=== PATIENT | female | born 1995 | race Two or more races ===

== ENCOUNTER 2021-10-02 11:06 | Observation (INO) | payer MEDICAID, OTHER ==
[~2021-10-02] VITALS: Ht 160 cm; Wt 63.5 kg
[2021-10-02] MEDS ORDERED: PREN-96 PO (11:57)
== END 2021-10-02 13:30 | disposition home or self-care (01) ==
LOC: LDRP 11:06
PROVIDERS: ADMIT Obstetrics & Gynecology; ATTEND Obstetrics & Gynecology
DX: O48.0 Post-term pregnancy (principal); O36.8930 Maternal care for other specified fetal problems, third trimester, not applicable or unspecified; Z3A.39 39 weeks gestation of pregnancy
CPT/HCPCS: 59025; 76818; 94760; G0378

== ENCOUNTER 2021-10-03 09:40 | Observation (INO) | payer MEDICAID ==
[~2021-10-03] VITALS: Ht 165.1 cm; Wt 68.0 kg
[~2021-10-03 09:40] MED LIST: PREN-96 PO
[2021-10-03] MEDS: LACTATED RINGER'S 1,000 ML IV ONE (16:25)
== END 2021-10-03 15:18 | disposition home or self-care (01) ==
LOC: LDRP 09:40
PROVIDERS: ADMIT Obstetrics & Gynecology; ATTEND Obstetrics & Gynecology
DX: O42.92 Full-term premature rupture of membranes, unspecified as to length of time between rupture and onset of labor (principal); O62.9 Abnormality of forces of labor, unspecified; Z3A.39 39 weeks gestation of pregnancy
CPT/HCPCS: 59025; 76815; 76818; 81002; 96360; 96361; G0378

== ENCOUNTER 2021-10-05 19:14 | Observation (INO) | payer MEDICAID ==
[~2021-10-05] VITALS: Ht 160 cm; Wt 61.2 kg
== END 2021-10-06 01:07 | disposition home or self-care (01) ==
LOC: LDRP 19:14
PROVIDERS: ADMIT Obstetrics & Gynecology; ATTEND Obstetrics & Gynecology
DX: O48.0 Post-term pregnancy (principal); O36.8930 Maternal care for other specified fetal problems, third trimester, not applicable or unspecified; Z3A.40 40 weeks gestation of pregnancy
CPT/HCPCS: 59025; 76818; 81002; G0378

== ENCOUNTER 2021-10-07 10:25 | Observation (INO) | payer MEDICAID | END 2021-10-07 13:10 | disposition home or self-care (01) | LOC: LDRP 10:25 → UNDOADMOB 10:25 → LDRP 10:40 | PROVIDERS: ADMIT Obstetrics & Gynecology; ATTEND Obstetrics & Gynecology | DX: O48.0 Post-term pregnancy (principal); O62.9 Abnormality of forces of labor, unspecified; Z3A.40 40 weeks gestation of pregnancy | CPT/HCPCS: 59025; 76818; 81002; 94760; G0378 ==

== ENCOUNTER 2021-10-09 02:20 | Inpatient (IN) | payer MEDICAID ==
[2021-10-09] MEDS ORDERED: DERMOPLAST 60ML BOTTLE TOP PRN (02:45)
[2021-10-09] MEDS ORDERED: PROMETHAZINE HCL 25 MG/ML 1ML IV PRN (02:45)
[2021-10-09] MEDS ORDERED: PROMETHAZINE HCL 25 MG/ML 1ML IM PRN (02:45)
[2021-10-09] MEDS ORDERED: WITCH HAZEL-GLYCERIN PAD TOP PRN (02:45)
[2021-10-09] MEDS ORDERED: BUTORPHANOL TARTRATE 2 MG/1 ML VIAL IV PRN ×2 (02:45)
[2021-10-09] MEDS ORDERED: LACTATED RINGER'S 1,000 ML IV SCH (02:45)
[2021-10-09] MEDS ORDERED: LIDOCAINE 2%HCL (LOCAL ANESTH.) INJ 10ml MDV IJ PRN (02:45)
[2021-10-09] MEDS ORDERED: LACT. RINGERS/OXYTOCIN 20UNITS 500 ML IV ONE ×2 (02:45→03:15)
[2021-10-09] MEDS ORDERED: PHISODERM TOP SOLN 240ML BTL TOP PRN (02:45)
[2021-10-09] MEDS ORDERED: NS/OXYTOCIN 20UNITS 500 ML IV ONE ×2 (03:00→03:30)
[2021-10-09 03:24] LABS: Basophils # (auto) 0 10 ^3/uL (0-0.2); Basophils % (auto) 0.1 % (0.0-2.0); Eosinophils # (auto) 0.1 10 ^3/uL (0-0.8); Eosinophils % (auto) 0.4 % (0.0-7.0); Hematocrit 37.5 % (36.0-46.0); Hemoglobin 12.5 g/dL (12.2-16.2); Lymphocytes # (auto) 1.8 10 ^3/uL (0.4-5.4); Mean Corpuscular Hemoglobin 31.2 pg (28.0-32.0); Mean Corpuscular Hgb Conc. 33.5 g/dL (32.0-36.0); Mean Corpuscular Volume 93.2 fL (80.0-100.0); Monocytes # (auto) 0.9 10 ^3/uL (0-1.3); Neutrophils # (auto) 12.3 10 ^3/uL (1.6-8.6); Neutrophils % (auto) 81.5 % (37.0-80.0); Red Blood Cells 4.02 10^6/uL (4.0-5.20); Red Cell Distribution Width 13.7 % (11.8-14.3); White Blood Cell 15.1 10^3/uL (4.4-10.8)
[2021-10-09 03:39] LABS: Amphetamine Screen, Urine NEGATIVE (NEGATIVE); Barbiturate Scree,Urine NEGATIVE (NEGATIVE); Benzodiazephine Screen, Urine NEGATIVE (NEGATIVE); Cannabinoid Screen, Urine NEGATIVE (NEGATIVE); Cocaine Screen, Urine NEGATIVE (NEGATIVE); Opiate Scree,Urine NEGATIVE (NEGATIVE); Phencyclidine Screen, Urine NEGATIVE (NEGATIVE)
[2021-10-09 03:40] LABS: Albumin 3.3 g/dL (3.4-5.0); BUN/Creatinine Ratio 12.7; Calcium 8.5 mg/dL (8.5-10.1); INR 0.9 (0.9-1.15); Partial Thromboplastin Time 27.8 sec (24.6-33.4); Potassium 3.6 mmol/L (3.5-5.1)
[2021-10-09 03:43] LABS: Bilirubin, Total 0.5 mg/dL (0.2-1.0)
[2021-10-09 03:50] LABS: Urine Bacteria MOD /hpf (None Seen); Urine Blood Negative /uL (Negative); Urine Mucus FEW (None Seen); Urine Specific Gravity 1.027 (1.001-1.035); Urine WBC 45 /hpf (0 - 5)
[2021-10-09] MEDS ORDERED: ONDANSETRON ODT 4 MG TAB PO PRN (04:45)
[2021-10-09] MEDS ORDERED: ACETAMINOPHEN 325 MG TAB PO PRN (04:45)
[2021-10-09] MEDS ORDERED: IBUPROFEN 600 MG TAB PO PRN (04:45)
[2021-10-09] MEDS ORDERED: TETANUS-DIPTH-ACEL PERTUSSIS 0.5ML SYR Tdap IM ONE (05:15)
[2021-10-09 06:40] VITALS: BP 108/56
[2021-10-09 11:20] VITALS: BP 99/56
[2021-10-09 14:54] VITALS: BP 103/52
[2021-10-09 19:14] VITALS: BP 110/62
[2021-10-09] MEDS ORDERED: DOCUSATE SOD 100 MG CAP PO SCH (22:00)
[2021-10-09 23:00] VITALS: BP 99/55
[2021-10-10 03:00] VITALS: BP 94/56
[2021-10-10 07:35] VITALS: BP 98/64
[2021-10-10 08:06] LABS: RPR Non Reactive (Non Reactive)
== END 2021-10-10 07:45 | disposition home or self-care (01) | DRG 560 ==
LOC: LDRP 02:20 → UNDOADMOB 02:20 → OBSVTOIN 02:40 → INTOOBSV 02:40 → LDRP 04:07 → UNDODISIN 10-10 07:45 → EDSTATUS 10-19 08:02
PROVIDERS: ADMIT Obstetrics & Gynecology; ATTEND Obstetrics & Gynecology
PROC: 10E0XZZ Delivery of Products of Conception, External Approach (ICD-10-PCS; principal; 2021-10-09)
DX: O62.3 Precipitate labor (principal); Z37.0 Single live birth; O69.81X0 Labor and delivery complicated by cord around neck, without compression, not applicable or unspecified; Z3A.39 39 weeks gestation of pregnancy; Z20.822 Contact with and (suspected) exposure to COVID-19
CPT/HCPCS: 36415; 59025; 59409; 80053; 80307; 81001; 81002; 85025; 85610; 85730; 86592; 86850; 86900; 86901; 90471; 90715; 94760; 96360; 96361; 96365; 96366; G0378; J2001; J2590

== ENCOUNTER 2022-10-05 15:55 | Observation (INO) | payer MEDICAID | END 2022-10-05 17:55 | disposition home or self-care (01) | LOC: UNDOADMOB 15:55 → LDRP 15:55 | PROVIDERS: ADMIT Obstetrics & Gynecology; ATTEND Obstetrics & Gynecology | DX: O62.9 Abnormality of forces of labor, unspecified (principal); O48.0 Post-term pregnancy; O36.8330 Maternal care for abnormalities of the fetal heart rate or rhythm, third trimester, not applicable or unspecified; Z3A.40 40 weeks gestation of pregnancy | CPT/HCPCS: 59025; 76818; 81002; 94760; G0378 ==

== ENCOUNTER 2022-10-07 14:20 | Observation (INO) | payer MEDICAID ==
[~2022-10-07] VITALS: Ht 162 cm; Wt 63.0 kg
== END 2022-10-07 15:56 | disposition home or self-care (01) ==
LOC: LDRP 14:20
PROVIDERS: ADMIT Obstetrics & Gynecology; ATTEND Obstetrics & Gynecology
DX: O48.0 Post-term pregnancy (principal); O26.853 Spotting complicating pregnancy, third trimester; Z3A.40 40 weeks gestation of pregnancy
CPT/HCPCS: 59025; 76818; 81002; 94760; G0378